=== PATIENT | female | born 1945 | race Caucasian/White ===

== ENCOUNTER 2017-03-01 10:52 | Inpatient (IN) | payer OTHER ==
[2017-01-30 15:11] VITALS: BMI 31.0
--- NOTE | 2017-01-30 15:45 | PAT Medication Instructions ---
Service Date Jan 30, 2017. Current Home Medication List Albuterol Hfa (Ventolin Hfa), 2 PUFFS INH Q6H PRN for PRN Alendronate/Cholecalciferol (Fosamax+D 70MG/2800 Iu), 1 TABLET PO WK Atorvastatin (Lipitor), 80 MG PO QPM Calcium Carbonate-Cholecalcife (Caltrate 600+D), 1 TAB PO 2-3XWEEK Carvedilol (Coreg), 12.5 MG PO BID Cholecalciferol (Vitamin D3), 5,000 UNITS PO 2-3XWEEK Fluticasone Propionate (Nasal) (Flonase Allergy Relief), 2 SPRAYS ALBERTO QPM PRN for RN Losartan Potassium (Cozaar), 50 MG PO QAM Omeprazole (Prilosec), 40 MG PO QAM Oxybutynin Chloride Er (Ditropan Xl), 10 MG PO QAM [Feosol], 1 TAB PO QAM Medication Instructions For Your Scheduled Surgery - Hold the following medications the morning of surgery: [Feosol], 1 TAB PO QAM Losartan Potassium (Cozaar), 50 MG PO QAM Calcium Carbonate-Cholecalcife (Caltrate 600+D), 1 TAB PO 2-3XWEEK Cholecalciferol (Vitamin D3), 5,000 UNITS PO 2-3XWEEK - Take the following medications the morning of surgery with a sip of water OTHERWISE NOTHING TO EAT OR DRINK AFTER MIDNIGHT: Omeprazole (Prilosec), 40 MG PO QAM Albuterol Hfa (Ventolin Hfa), 2 PUFFS INH Q6H PRN for PRN (use if needed; BRING TO HOSPITAL) Carvedilol (Coreg), 12.5 MG PO BID Oxybutynin Chloride Er (Ditropan Xl), 10 MG PO QAM - Take the following medications as scheduled the night before surgery: Atorvastatin (Lipitor), 80 MG PO QPM Albuterol Hfa (Ventolin Hfa), 2 PUFFS INH Q6H PRN for PRN Carvedilol (Coreg), 12.5 MG PO BID Fluticasone Propionate (Nasal) (Flonase Allergy Relief), 2 SPRAYS ALBERTO QPM PRN If you have any questions please call us at [phone] or [phone] or [phone]
--- NOTE | 2017-01-30 16:16 | DIAGNOSTIC IMAGING REPORT ---
CHEST 2 VIEWS ROUTINE CLINICAL HISTORY: PAT preoperative evaluation COMPARISON STUDY: No previous studies for comparison. FINDINGS: The bones soft tissues and hemidiaphragms are normal. The cardiomediastinal silhouette is normal. The lungs are clear. The pulmonary vasculature is normal. IMPRESSION: Negative chest. Electronically signed by: Link Feng M.D. 01/30/2017 4:14 PM Dictated Date/Time: 01/30/2017 4:14 PM
[2017-01-30 16:18] LABS: BASO % 0.7 %; BASO ABS # 0.06 K/uL (0-0.2); COMPLETE YES; EOS % 3.5 %; HEMATOCRIT 40.6 % (37-47); IG% 0.1 %; LYMPH % 36.5 %; LYMPH ABS # 3.12 K/uL (1.2-3.4); MEAN CELL VOLUME 89.6 fL (80-100); MEAN CORPUSCULAR HEMOGLOBIN 31.8 pg (25-34); MEAN CORPUSCULAR HGB CONC 35.5 g/dl (32-36); MEAN PLATELET VOLUME 11.7 fL (7.4-10.4); MONO % 8.9 %; NEUT % 50.3 %; PLATELET COUNT 247 K/uL (130-400); RED BLOOD COUNT 4.53 M/uL (4.2-5.4); WHITE BLOOD COUNT 8.55 K/uL (4.8-10.8)
[2017-01-30 16:31] LABS: INR 0.9 (0.9-1.1); PROTHROMBIN TIME (PATIENT) 9.9 SECONDS (9.0-12.0)
[2017-01-30 16:37] LABS: BUN/CREATININE RATIO 13.8 (10-20); CREATININE 0.85 mg/dl (0.60-1.20)
--- NOTE | 2017-02-23 21:31 | HISTORY & PHYSICAL EXAMINATION ---
DATE OF ADMISSION: 03/01/2017 CHIEF COMPLAINT: Bilateral knee pain, right side greater than left. HISTORY OF PRESENT ILLNESS: The patient is a 71-year-old female who presents for treatment of her knees. She has a very long history of bilateral knee pain and discomfort. She describes it has gotten worse over the past 2 years. We have been treating her with injections, which provided some temporary relief, but has become less successful over time, particularly in the right knee. The right knee hurts more than left. It is increased with weightbearing. The more she walks, the more she hurts. She would like to have her right knee fixed. PAST MEDICAL HISTORY: 1. Hypertension. 2. Elevated cholesterol. 3. Arthritis. 4. Raba-boxk-mco-day smoking history. PAST SURGICAL HISTORY: Include jaw surgery. ALLERGIES: None. CURRENT MEDICINES: 1. Albuterol 2 puffs every 4 hours as needed for cough. 2. Oxybutynin/Ditropan 10 mg once a day. 3. Prilosec 40 mg a day. 4. Losartan 50 mg a day. 5. Fosamax 70 mg once a week. 6. Coreg 12.5 mg twice a day. 7. Flonase 2 sprays in each nostril daily. 8. Lipitor 80 mg a day. 9. Iron sulfate once a day. 10. Vitamin D3. 11. Caltrate with D. SOCIAL HISTORY: A 71-year-old female. She is single. Does not drink. FAMILY HISTORY: No heart disease, blood clots, thyroid cancer. REVIEW OF SYSTEMS: Negative for diabetes, neurologic problems, vascular problems or bleeding disorders. No history of DVT or PE. PHYSICAL EXAMINATION: GENERAL: Reveals a pleasant elderly female. HEENT: Benign. NECK: Supple. No lymphadenopathy. LUNGS: Clear to auscultation. HEART: Has a regular rate and rhythm. ABDOMEN: Soft, nontender, nondistended. EXTREMITIES: Grossly neurovascularly intact except as follows: Examination of the right leg reveals patient walks with a bit of a waddling gait. Examination of the right knee reveals varus alignment. She is tender over the medial joint line. Small knee effusion. Range of motion is 5-125. No instability. X-RAYS: X-rays of the right knee revealed advanced DJD. She has got complete loss of her medial joint space. Osteophytes of mediofemoral condyle and medial tibial plateau. She has some mild lateral compartment disease. ASSESSMENT: A 71-year-old female with bilateral knee degenerative joint disease, right side more symptomatic than the left. She has failed conservative treatment and would like to have her right knee replaced. PLAN: We are going to take her to operating room and do right total knee replacement. The risks and benefits of this procedure were explained to patient including but not limited to DVT, PE, , infection, neurological injury, vascular injury, bleeding problem, pain, limited range of motion, stiffness, failure to relieve symptoms, incomplete relief of symptoms, need for further surgery in the future, fracture, leg length inequality, nerve palsy, etc. The patient understands and desires to proceed. Informed consent was obtained. She does live by herself and she would like to go to rehab or halfway facility to recover which I think will be essential. She does smoke in the history and we will have to see whether she needs a nicotine patch in the hospital. I will see her 2 weeks postop. NIDIA
[2017-03-01] VITALS (9 sets, daily range): BP systolic 154–192; BP diastolic 73–93; PULSE 54–68; TEMP 36.4–36.9; O2SAT 94–100; Ht 154.9 cm; Wt 73.7 kg
[~2017-03-01] VITALS: Ht 154.9 cm; Wt 73.7 kg
[~2017-03-01 10:52] MED LIST: ACETAMINOPHEN 500 MG TAB PO SCH; ATOR-26 PO; ATROPINE SULFATE 0.1 MG/ML 5ML SYR IV PRN; BUPIVACAINE 0.25% 30 ML VIAL ONE; BUPIVACAINE 0.5 % 5 MG/1 ML PF 10ML VIAL ONE; BUPIVACAINE LIPOSOME 266 MG, BUPIVACAINE/EPINEPHRINE INJ 50 ML, SODIUM CHLORIDE 0.9% PF... INFIL SCH; CALC-354 PO; CARV12.52 PO; CEFAZOLIN 2000 MG/60 ML D5W 60 ML IV SCH; CHOL1000 PO; EpHEDrine SULFATE INJ 50 MG/ML AMP IV PRN; FAMOTIDINE 20 MG TAB PO SCH; FENTANYL CITRATE INJ 50 MCG/1 ML 2 ML VIAL IV PRN; FEOSOL PO; FLUT0.15 NAE; FSMD/70 PO; GABAPENTIN 300 MG CAP PO SCH; HYDROmorphone INJ 1 MG/ML SYR IV PRN; LABETALOL HCL IV 5 MG/ML 20ML IV PRN; LACTATED RINGER'S 1000ML 1,000 ML IV SCH; LACTATED RINGER'S 1000ML 500 ML IV ONE; LACTATED RINGER'S 1000ML IV SCH; LOSA50TA6 PO; MEPERIDINE HCL 25 MG/ML CARP IV PRN; METOCLOPRAMIDE HCL 10 MG TAB PO SCH; ONDANSETRON INJ 2 MG/ML 2 ML VIAL IV PRN; OXYB10TA13 PO; PRLSR20 PO; SCOPOLAMINE 1.5 MG TDSY TD SCH; TRANEXAMIC ACID INJ 1,000 MG in SODIUM CHLORIDE 0.9% 100ML 100 ML IV SCH; VNTHFA/IN INH
--- NOTE | 2017-03-01 11:35 | History & Physical Bridge Note ---
H&P Re-Evaluation Bridge Note: I have examined the patient, reviewed the History & Physical and in the interval since the performance of the History & Physical I have noted the following changes of clinical significance: No changes noted
[2017-03-01] MEDS ORDERED: FENTANYL CITRATE INJ 50 MCG/1 ML 2 ML VIAL ONE (12:18)
[2017-03-01] MEDS ORDERED: PROPOFOL IV EMULSION 10 MG/ML 20 ML VIAL IV ONE (12:18)
[2017-03-01] MEDS ORDERED: MIDAZOLAM HCL 1 MG/ML 2ML VIAL ONE ×2 (12:18)
[2017-03-01] MEDS ORDERED: SODIUM CHLORIDE 0.9% PF 50 ML VIAL ONE (13:26)
[2017-03-01] MEDS ORDERED: BUPIVACAINE/EPINEPHRINE 0.25% 1:200,000 30 ML VIAL ONE (13:26)
[2017-03-01] MEDS ORDERED: BACITRACIN 50000 UNIT VIAL ONE (13:26)
[2017-03-01] MEDS ORDERED: BUPIVACAINE LIPOSOME 1/3% 266 MG/20 ML VIAL INFIL ONE (13:27)
--- NOTE | 2017-03-01 15:19 | [facility] Post Operative Brief Note ---
Immediate Operative Summary Operative Date March 01, 2017. Pre-Operative Diagnosis Degenerative Joint Disease, right knee Post-Operative Diagnosis Degenerative Joint Disease, right knee Procedure(s) Performed Right Total Knee Arthroplasty Surgeon Dr. Oliveira Fleet Administrative Assistant Surgeon(s) CHERYL Wall Estimated Blood Loss 50 cc Findings Right Knee DJD Fluids (cc crystalloids) 1200 cc Specimens A) Right knee-bone and tissue Drains None Anesthesia Spinal Complication(s) None Disposition Recovery Room / PACU
[2017-03-01] MEDS ORDERED: HydrALAZINE HCL 20 MG/ML VIAL ONE (15:21)
[2017-03-01] MEDS ORDERED: ZOLPIDEM TARTRATE 5 MG TAB PO PRN (15:30)
[2017-03-01] MEDS: ACETAMINOPHEN 500 MG TAB PO SCH ×2 (15:30→23:54)
[2017-03-01] MEDS ORDERED: DiphenhydrAMINE HCL 50 MG/ML VIAL IV PRN (15:30)
[2017-03-01] MEDS ORDERED: OXYCODONE HCL IR 5 MG TAB (IMMEDIATE RELEASE) PO PRN (15:30)
[2017-03-01] MEDS ORDERED: FLUTICASONE PROPIONATE NA SPR 16 GM BTL NAE PRN (15:30)
[2017-03-01] MEDS ORDERED: HYDROmorphone INJ 1 MG/ML SYR IV PRN (15:30)
[2017-03-01] MEDS ORDERED: MAGNESIUM HYDROXIDE SUSP 30 ML UDC PO PRN (15:30)
[2017-03-01] MEDS ORDERED: ALUMINUM/MAGNESIUM/SIMETH (MAALOX MAX) 30 ML UDC PO PRN (15:30)
[2017-03-01] MEDS ORDERED: CALCIUM CARBONATE CHOLECALCIFE PO SCH (15:30)
[2017-03-01] MEDS ORDERED: ONDANSETRON INJ 2 MG/ML 2 ML VIAL IV PRN (15:30)
[2017-03-01] MEDS ORDERED: BISACODYL 10 MG SUPP PR PRN (15:30)
[2017-03-01] MEDS ORDERED: ALBUTEROL HFA 8 GM INHALER INH PRN (15:30)
[2017-03-01] MEDS ORDERED: METOCLOPRAMIDE HCL INJ 5 MG/ML 2 ML VIAL IV PRN (15:30)
[2017-03-01] MEDS ORDERED: SILVER SULFADIAZINE 1% CR 50 GM JAR EXT PRN (15:30)
--- NOTE | 2017-03-01 16:10 | DIAGNOSTIC IMAGING REPORT ---
RIGHT KNEE 1 OR 2 VIEWS ROUTINE CLINICAL HISTORY: Postoperative evaluation. COMPARISON: None FINDINGS: Alignment of the total right knee arthroplasty is anatomic. There is no fracture or unexpected radiopaque foreign body. Skin chyna are present. IMPRESSION: Expected findings following total right knee arthroplasty. Electronically signed by: Ken Venegas M.D. 03/01/2017 4:09 PM Dictated Date/Time: 03/01/2017 4:09 PM
--- NOTE | 2017-03-01 16:38 | Anesthesiology Progress Note ---
Anesthesia Post Op Note Date & Time March 01, 2017 at 16:37 Vital Signs Pain Intensity: 0 Vital Signs Past 12 Hours Date Time Temp Pulse Resp B/P Pulse Ox O2 Delivery O2 Flow Rate FiO2 03/01/17 15:57 61 98 03/01/17 15:57 37 53 16 03/01/17 15:55 141/85 03/01/17 15:52 49 15 03/01/17 15:52 46 15 100 03/01/17 15:50 137/81 03/01/17 15:47 47 15 100 03/01/17 15:47 50 15 03/01/17 15:45 149/79 03/01/17 15:42 46 14 100 03/01/17 15:42 48 14 03/01/17 15:41 158/89 03/01/17 15:37 56 15 03/01/17 15:37 52 15 100 03/01/17 15:36 150/73 03/01/17 15:35 54 16 03/01/17 15:35 52 16 100 03/01/17 15:32 152/66 03/01/17 15:25 36.5 53 16 152/66 100 Nasal Cannula 3 03/01/17 11:42 36.5 55 16 170/80 Room Air Notes Mental Status: alert / awake / arousable, participated in evaluation Pt Amnestic to Procedure: Yes Nausea / Vomiting: adequately controlled Pain: adequately controlled Airway Patency, RR, SpO2: stable & adequate BP & HR: stable & adequate Hydration State: stable & adequate Neuraxial Anesthesia: was administered, sensory block is resolving Anesthetic Complications: no major complications apparent
[2017-03-01] MEDS: CHECK SCOPOLAMINE PATCH PLACEMENT SCH ×2 (17:02→23:52)
[2017-03-01] MEDS: D5W AND 1/2NSS + 20MEQ KCL 1,000 ML IV SCH (17:03)
[2017-03-01] MEDS: FERROUS GLUCONATE 324 MG TAB PO SCH (18:05)
[2017-03-01] MEDS: KETOROLAC TROMETHAMINE 30 MG/ML VIAL IV. SCH ×2 (18:06→23:55)
[2017-03-01] MEDS: TAPENTADOL ER 50 MG TABCR PO SCH (21:11)
[2017-03-01] MEDS: ATORVASTATIN 40 MG TAB PO SCH (21:11)
[2017-03-01] MEDS: ASPIRIN 325 MG ECTAB PO SCH (21:12)
[2017-03-01] MEDS: DOCUSATE SODIUM 100 MG CAP PO SCH (21:12)
[2017-03-01] MEDS ORDERED: TRANEXAMIC ACID INJ 1,000 MG in SODIUM CHLORIDE 0.9% 100ML 100 ML IV SCH (21:30)
[2017-03-01] MEDS: CARVEDILOL 12.5 MG TAB PO SCH (21:53)
[2017-03-01] MEDS: CEFAZOLIN IV 1,000 MG in DEXTROSE 5% 50ML 50 ML IV SCH (21:54)
--- NOTE | 2017-03-01 22:34 | OPERATIVE REPORT ---
DATE OF OPERATION: 03/01/2017 SURGEON: Dr. Earl Oliveira. VICE PRESIDENT OF ADVERTISING: CHERYL Russ. PREOPERATIVE DIAGNOSIS: Right knee degenerative joint disease. POSTOPERATIVE DIAGNOSIS: Same. PROCEDURE PERFORMED: Right cemented posterior stabilized total knee arthroplasty. COMPLICATIONS: None. ESTIMATED BLOOD LOSS: 50 mL FLUID REPLACEMENT: 1200 mL crystalloid fluid replacement. TOURNIQUET TIME: 56 minutes at 300 mmHg. ANESTHESIA: Spinal. DRAINS: None. SPECIMENS: Right knee sent for pathology. OPERATIVE INDICATIONS: The patient is a 71-year-old female who has had several-year history of bilateral knee pain and discomfort, describes it has just gotten worse over the past several years. She has been through extensive conservative treatment without adequate relief. X-rays revealed medial compartment DJD. The patient elected to proceed with operative treatment. OPERATIVE FINDINGS: Operative findings revealed advanced right knee medial compartment DJD. She had complete loss of her medial joint space with [id number] disease in the medial femoral condyle and medial tibial plateau. She also had some grade 4 changes of patella and the trochlea. The lateral compartment was pretty well preserved. She did have a knee effusion and varus deformity to her knee. She had posterior osteophytes. OPERATIVE IMPLANTS: Operative implants consisted of: 1. Biomet Vanguard size 62.5 right posterior stabilized femoral component. 2. Biomet size 63 tibial tray. 3. A 12 mm posterior stabilized polyethylene insert. 4. A 31 x 8 all poly patella. OPERATIVE PROCEDURE: The patient was taken to the operating room, identified and placed on the operating table in supine position. All contact areas were appropriately padded. IV antibiotics were provided by anesthesia team. A spinal anesthetic had been implemented in the holding area along with an adductor canal block. Ngo catheter was placed in sterile fashion. Right thigh tourniquet was then placed and right lower extremity was then prepped and draped in the usual sterile fashion. The right leg was elevated and exsanguinated with Esmarch and tourniquet was placed at 300 mmHg. An anterior approach to the right knee was then performed through a longitudinal incision centered over the patella. Sharp dissection was carried out through the subcutaneous tissues down to the level of the extensor mechanism. A medial parapatellar arthrotomy incision was made. Some subperiosteal dissection was carried out medially. The fat pad was resected from beneath the patellar tendon. The lateral patellofemoral ligament was released. The patella was everted and the knee was flexed. The osteophytes were taken off the distal femur. The ACL and PCL were then released from the distal femur and the tibia subluxated anteriorly. The external tibial alignment jig was then placed in the anterior face of the tibia and adjusted 14 mm medially. Proximal tibial cut was made to remove about 2-3 mm of bone from the most deficient aspect of the medial tibial plateau. Tibia was sized to a size 63. Attention was then drawn to the femur. The distal femur was entered with a sharp drill. The intramedullary canal was suctioned. A right 5-degree valgus cutting guide was placed. The distal femoral cutting block was pinned in place. Distal femoral cut was made to take an additional 3 mm of bone off the distal femur. The femur was then sized to a size 62.5. We did downsize this slightly. The AP cutting block was pinned parallel to the epicondylar axis which was 4 degrees of external rotation. The anterior cut, anterior chamfer, posterior cut, posterior chamfer cuts were made. Box cutting guide was placed. The knee was flexed. The remnants of the medial and lateral menisci were excised. The osteophytes were taken off the posterior aspect of the femur. Trial femoral component was placed. The tibial tray was pinned in maximum external rotation, and drill and stem punch were used to create defect in the proximal tibia for the tibial tray. The knee was then trialed and the 12 mm insert fit most appropriately. Attention was then drawn to the patella. The patella was cleaned of all soft tissues. The patella thickness measured 21 mm in thickness and was cut down to 14. It was sized to a size 31 patella. Lug holes were drilled for the 31 patella. The lateral osteophyte was removed. Patella button was placed. Knee was taken through range of motion and the patella tracked nicely with no thumbs test. Attention was then drawn toward placement of permanent components. All trial components were removed. A bone plug was placed in the distal femur to limit blood loss. A double batch of Palacos G cement was mixed. A right size 62.5 posterior stabilized femoral component, size 63 tibial tray, 12 mm posterior stabilized polyethylene insert, and a 31 x 8 all poly patella were then cemented in place. The knee was brought out into full extension until cement hardened. A final cement check was then performed. The pericapsular tissues were injected with a total of 100 mL of a combination of 20 mL of Exparel, 30 mL of normal saline, 50 mL of 0.25% Marcaine with epinephrine. The tourniquet was then let down for a final tourniquet time of 56 minutes. The patient did receive 1 gram of tranexamic acid. Hemostasis was assured with use of electrocautery. The wound was once again irrigated. The extensor mechanism was then closed with a combination of #1 PDS suture and #1 Vicryl suture in a [id number] fashion. Extensor mechanism was checked and found to be intact. Subcutaneous tissues were then closed with 2-0 Dexon suture in a buried interrupted fashion. Skin was closed with skin chyna. Leg was then cleaned and dried, and a sterile dressing of Xeroform, 4 x 4's, sterile cast padding, and Justus bandage was applied. The patient was then transferred to the recovery room in stable condition. The patient tolerated the procedure well with no complications. All needle and sponge counts were correct at the end of the operation. I attest to the content of the Intraoperative Record and any orders documented therein. Any exceptio ns are noted below.
[2017-03-02] VITALS (7 sets, daily range): BP systolic 109–155; BP diastolic 62–75; PULSE 49–67; TEMP 36.7–36.8; O2SAT 93–96
[2017-03-02] MEDS: D5W AND 1/2NSS + 20MEQ KCL 1,000 ML IV SCH ×2 (01:43→11:32)
[2017-03-02] MEDS: CEFAZOLIN IV 1,000 MG in DEXTROSE 5% 50ML 50 ML IV SCH (06:00)
[2017-03-02] MEDS: KETOROLAC TROMETHAMINE 15 MG/ML VIAL IV. SCH ×3 (06:00→17:51)
[2017-03-02 06:03] LABS: HEMATOCRIT 33.9 % (37-47); MEAN CELL VOLUME 91.9 fL (80-100); MEAN CORPUSCULAR HEMOGLOBIN 31.2 pg (25-34); MEAN CORPUSCULAR HGB CONC 33.9 g/dl (32-36); MEAN PLATELET VOLUME 11.3 fL (7.4-10.4); PLATELET COUNT 212 K/uL (130-400); RED BLOOD COUNT 3.69 M/uL (4.2-5.4); WHITE BLOOD COUNT 9.25 K/uL (4.8-10.8)
[2017-03-02 06:33] LABS: BUN/CREATININE RATIO 13.5 (10-20); CALCIUM 8.3 mg/dl (8.5-10.1); CREATININE 0.95 mg/dl (0.60-1.20); POTASSIUM 4.3 mmol/L (3.5-5.1)
[2017-03-02] MEDS: CHECK SCOPOLAMINE PATCH PLACEMENT SCH ×2 (07:34→16:08)
[2017-03-02] MEDS: FERROUS GLUCONATE 324 MG TAB PO SCH ×3 (07:35→17:51)
[2017-03-02] MEDS: ACETAMINOPHEN 500 MG TAB PO SCH ×2 (07:35→16:09)
[2017-03-02] MEDS: ASPIRIN 325 MG ECTAB PO SCH ×2 (07:40→21:00)
[2017-03-02] MEDS: LOSARTAN POTASSIUM 50 MG TAB PO SCH (07:40)
[2017-03-02] MEDS: OXYBUTYNIN CHLORIDE 5 MG TABCR PO SCH (07:40)
[2017-03-02] MEDS: MULTIVITAMIN TAB PO SCH (07:40)
[2017-03-02] MEDS: CARVEDILOL 12.5 MG TAB PO SCH ×2 (07:40→20:57)
[2017-03-02] MEDS: DOCUSATE SODIUM 100 MG CAP PO SCH ×2 (07:41→20:59)
[2017-03-02] MEDS: PANTOprazole SOD 40 MG TAB PO SCH (07:41)
[2017-03-02] MEDS: CHOLECALCIFEROL 400 INTER.UNIT TAB PO SCH (07:41)
[2017-03-02] MEDS: NICOTINE 14 MG/24 HR TDSY TD SCH ×2 (07:41→20:55)
[2017-03-02] MEDS: TAPENTADOL ER 50 MG TABCR PO SCH ×2 (07:45→20:59)
[2017-03-02] MEDS ORDERED: NURSING VERBAL MED ORDER ONE (08:15)
--- NOTE | 2017-03-02 08:21 | PROGRESS NOTE ---
DATE: 03/02/2017 SUBJECTIVE: A 71-year-old female postop day 1 from right knee replacement. She is doing pretty well. Some pain, but manageable. No chest pain or shortness of breath. Not feeling dizzy or lightheaded. OBJECTIVE: VITAL SIGNS: Temperature 36.7. Vital signs stable. PHYSICAL EXAMINATION: GENERAL: Reveals a pleasant, middle-aged female. She is sitting up in bed and looks pretty comfortable. LUNGS: Clear to auscultation. HEART: Regular rate and rhythm. ABDOMEN: Soft, nontender, and nondistended. EXTREMITIES: Grossly neurovascularly intact except as follows: Examination of the right leg reveals the dressing to be clean, dry and intact. She can dorsiflex and plantarflex her foot appropriately. She is neurologically intact. LABORATORY DATA: Hemoglobin 11.5. Hematocrit 33.9. Electrolytes are stable. ASSESSMENT: A 71-year-old female postop day 1 from right knee replacement, doing pretty well. Pain is controlled. She is neurologically intact. PLAN: 1. DVT prophylaxis including thigh-high TEDs, SCDs, and aspirin twice a day. 2. PT/OT. Weightbearing as tolerated. Right total knee protocol. 3. Pain control, doing well with current pain regimen. 4. Disposition: She is hoping to be discharged either to rehab or long-term facility as she lives by herself and does not have a lot of help at home.
[2017-03-02] MEDS ORDERED: NON-FORMULARY MEDICATION (Omeprazole (Prilosec) 40 MG) PO SCH (09:00)
[2017-03-02] MEDS: ATORVASTATIN 40 MG TAB PO SCH (21:00)
[2017-03-03] MEDS: CHECK SCOPOLAMINE PATCH PLACEMENT SCH
[2017-03-03] MEDS: KETOROLAC TROMETHAMINE 15 MG/ML VIAL IV. SCH ×3 (05:41→11:54)
[2017-03-03 06:35] VITALS: BP 144/66; PULSE 69; TEMP 36.5; O2SAT 93
[2017-03-03] MEDS: PANTOprazole SOD 40 MG TAB PO SCH (07:51)
[2017-03-03] MEDS: ASPIRIN 325 MG ECTAB PO SCH (07:51)
[2017-03-03] MEDS: NICOTINE 14 MG/24 HR TDSY TD SCH (07:51)
[2017-03-03] MEDS: OXYBUTYNIN CHLORIDE 5 MG TABCR PO SCH (07:52)
[2017-03-03] MEDS: CARVEDILOL 12.5 MG TAB PO SCH (07:52)
[2017-03-03] MEDS: DOCUSATE SODIUM 100 MG CAP PO SCH (07:52)
[2017-03-03] MEDS: CHOLECALCIFEROL 400 INTER.UNIT TAB PO SCH (07:52)
[2017-03-03] MEDS: MULTIVITAMIN TAB PO SCH (07:52)
[2017-03-03] MEDS: LOSARTAN POTASSIUM 50 MG TAB PO SCH (07:52)
[2017-03-03] MEDS: FERROUS GLUCONATE 324 MG TAB PO SCH ×2 (07:53→12:20)
[2017-03-03] MEDS: ACETAMINOPHEN 500 MG TAB PO SCH ×2 (07:53)
[2017-03-03] MEDS ORDERED: OXYC-57 PO (07:54)
[2017-03-03] MEDS ORDERED: ASPEC325 PO (07:54)
[2017-03-03] MEDS ORDERED: MORP15TA19 PO (07:54)
--- NOTE | 2017-03-03 07:56 | Discharge Instructions ---
Discharge Instructions Date of Service March 03, 2017. Admission Reason for Admission: Right Knee Degenerative Joint Disease Discharge Discharge Diagnosis / Problem: Right Knee Replacement Discharge Goals Goal(s): Decrease discomfort, Improve function, Increase independence, Improve disease control, Therapeutic intervention Activity Recommendations Activity Limitations: per Instructions/Follow-up section Weightbearing Status: Right weightbearing . Instructions / Follow-Up Instructions / Follow-Up ACTIVITY RECOMMENDATIONS: Physical Therapy: * You will go to physical therapy three times each week for four to six weeks after your surgery in order to regain your knee range of motion and to retrain your knee to work properly. * It is just as important to make sure you are getting your knee perfectly straight as it is to regain your knee bend. * Taking a pain pill an hour before therapy can help you have a more productive and comfortable therapy session. Home Exercise: * You were shown a series of exercises (heel props, heel slides, etc.) in the hospital. Do these exercises three to four times each day including the exercises you were shown in physical therapy. Walking: * Get up and walk several times each day. For the first four weeks, try not to stand or walk for more than one hour at a time. If you do stand or walk for more than one hour, you will not hurt anything, but your knee and leg will likely swell. * As you feel comfortable, you may change from the walker or crutches to a cane and then to independent walking. MEDICATIONS: New Medicine: * You will likely be taking one or more of these medications: 1. MS Contin - A long-acting pain medication. Take 1 tablet twice a day for the first ten days to decrease your baseline level of pain. 2. Percocet - A quick and shorter-acting pain medication. Take one to two tablets every four to six hours to lessen your pain. 3. Aspirin - Thins your blood to lessen the chance of forming a blood clot. * The most common side effects of pain medicine and iron are nausea and constipation. If nausea or constipation is too much of a problem or if you have any questions about your new medicines or doses, call [facility] at . We will try to help you manage these issues. VERY IMPORTANT TO READ AND REVIEW" Pain: * The immediate post-operative period after knee replacement surgery is often quite painful. * You are given a prescription for pain medicine. You should take it, as directed, when you need it, especially before physical therapy and before going to bed. Pain that interferes with sleep is very common and can last several months. * You will likely need pain medicine for the first four to six weeks. It will not stop all of the pain. The pain will lessen and as you feel better, you may change to milder pain medicine such as Tylenol. * The most common side effects of pain medicine are nausea and constipation, so don't take more than you need. SPECIAL CARE INSTRUCTIONS: TEDs/Elastic Stockings: * The white elastic stockings help limit swelling and prevent blood clots from forming in your legs. The more you wear them, the more they work. * Wear them for six weeks after knee replacement surgery and four weeks after partial knee replacement. Prevention of Infection: * Take antibiotics one hour before any dental cleaning, dental work, urological procedure, gastrointestinal procedure or any invasive surgery in order to prevent your new joint from getting infected. * You may get the antibiotics from the doctor performing the procedure or you may call our office at before and we will call in a prescription to the pharmacy of your choice. Things to Watch For: * Drainage from the incision site that occurs more than one week after your surgery. * Severely increased knee/leg pain or swelling. * Increased redness at the incision site. * Fever above 102 degrees Fahrenheit. * Unusual chest pain or shortness of breath. * Unusual pain or burning with urination. Call [facility] at with any of the above problems or if you have any questions about your medicines or recovery. FOLLOW UP VISIT: Make an appointment to see your doctor for approximately two weeks after surgery for a progress check and staple removal by calling the office at . Current Hospital Diet Patient's current hospital diet: Regular Diet Discharge Diet Recommended Diet: Regular Diet Procedures Procedures Performed: Right Total Knee Arthroplasty Pending Studies Studies pending at discharge: no Medical Emergencies . Who to Call and When: Medical Emergencies: If at any time you feel your situation is an emergency, please call [phone] immediately. . Non-Emergent Contact Non-Emergency issues call your: Surgeon . "Provider Documentation" section prepared by Earl Oliveira. . VTE Core Measure Inpt VTE Proph given/why not?: Other Anticoagulation, T.E.D. Stockings, SCD's
[2017-03-03] MEDS: TAPENTADOL ER 50 MG TABCR PO SCH (08:01)
--- NOTE | 2017-03-03 09:18 | PROGRESS NOTE ---
DATE: 03/03/2017 SUBJECTIVE: A 71-year-old female postop day 2 from right knee replacement. She is doing pretty well. Pain seems to be controlled. Therapy went in reasonably well. No chest pain or shortness of breath. Not feeling dizzy or lightheaded. OBJECTIVE: VITAL SIGNS: Temperature 36.5. Vital signs stable. PHYSICAL EXAMINATION: GENERAL: Reveals a healthy, pleasant middle-aged female. She is sitting in a bedside and looks pretty comfortable. LUNGS: Clear to auscultation. HEART: Regular rate and rhythm. ABDOMEN: Soft, nontender, nondistended. EXTREMITIES: Grossly neurovascularly intact except as follows: Examination of the right leg reveals the dressing to be clean, dry and intact. She can dorsiflex and plantarflex her foot appropriately. She is neurologically intact. ASSESSMENT: A 71-year-old female postop day 2 from right knee replacement, doing pretty well. Pain is pretty well controlled. She is now hoping to go home with some home health. PLAN: 1. DVT prophylaxis including thigh-high TEDs, SCDs, and aspirin twice a day. 2. PT/OT. Weightbearing as tolerated. Right total knee protocol. 3. Pain control, doing pretty well with current pain regimen. 4. Disposition: Plan to discharge to home with some home health. Her sister is currently available and she is going to help her for the first week or two.
[2017-03-03 10:22] VITALS: BP 144/66; PULSE 69; TEMP 36.5; O2SAT 93
[2017-03-04] MEDS ORDERED: CALCIUM 600MG + VIT D 400 IU TAB PO SCH (09:00)
--- NOTE | 2017-03-06 16:31 | DISCHARGE SUMMARY ---
ADMITTING PHYSICIAN AND SURGEON: Dr. Oliviera. ADMITTING DIAGNOSIS: Right knee degenerative joint disease. SURGERY PERFORMED: Right total knee arthroplasty. SECONDARY DIAGNOSES: Include hypertension, elevated cholesterol, arthritis and smoking history. CONSULTS: None obtained. HISTORY AND PHYSICAL EXAMINATION: Well documented in the patient's chart. HOSPITAL COURSE: The patient was admitted on 03/01/2017 and underwent total knee arthroplasty, tolerated the procedure well. There were no complications. She was transferred to the PACU postoperatively and later to the orthopedic floor for further care. She was given Ancef for antibiotic prophylaxis. and CHRISSIE stockings, SCDs and aspirin for DVT prophylaxis. Hemoglobin, hematocrit and vital signs were monitored during her hospital stay and remained stable. She developed some mild postoperative anemia, did not require any blood transfusions. There were no complications. By postoperative day #2, she was tolerating a general diet, pain was controlled with oral pain medicine. She was participating in physical therapy and had no signs or symptoms of deep vein thrombosis. On postop day #2, she was discharged home and set up with home health services, given printed discharge instructions including new prescriptions for aspirin 325 mg b.i.d., MS Contin and Percocet. Continue her home medicines. Continue physical therapy, weightbearing as tolerated, CHRISSIE stockings. Follow up in 10-12 days or sooner if there are any problems or concerns.
== END 2017-03-03 12:30 | disposition home health service (06) | DRG 470 ==
LOC: ENRESERVDT → ENRESERVTM → C.ACU 10:52 → C.3E 12:08
PROVIDERS: ADMIT Orthopaedic Surgery Sports Medicine; ATTEND Orthopaedic Surgery Sports Medicine
PROC: 0SRC0J9 Replacement of Right Knee Joint with Synthetic Substitute, Cemented, Open Approach (ICD-10-PCS; principal; 2017-03-01 13:15)
DX: M17.0 Bilateral primary osteoarthritis of knee (principal); I10 Essential (primary) hypertension; E78.00 Pure hypercholesterolemia, unspecified; F17.210 Nicotine dependence, cigarettes, uncomplicated; K21.9 Gastro-esophageal reflux disease without esophagitis; D64.9 Anemia, unspecified; E11.9 Type 2 diabetes mellitus without complications; E66.9 Obesity, unspecified; M25.461 Effusion, right knee; M21.161 Varus deformity, not elsewhere classified, right knee; K27.9 Peptic ulcer, site unspecified, unspecified as acute or chronic, without hemorrhage or perforation; Z68.30 Body mass index [BMI] 30.0-30.9, adult; Z79.82 Long term (current) use of aspirin; Z79.899 Other long term (current) drug therapy; Z79.51 Long term (current) use of inhaled steroids

== ENCOUNTER 2019-03-10 10:12 | Inpatient (IN) ==
--- NOTE | 2019-02-09 13:36 | PAT Medication Instructions ---
Medication Instructions Date of Service February 09, 2019 Home Medications ALBUTEROL HFA (VENTOLIN HFA) 2 puff INHALATION Q6H PRN ATORVASTATIN (LIPITOR)N80 mg PO QPM Alendronate/Cholecalciferol 1 tab PO WK CALCIUM CARBONATE-CHOLECALCIFE 1 tab PO 2-3XWEEK CARVEDILOL (COREG) 12.5 mg PO BID CHOLECALCIFEROL (VITAMIN D3) 5,000 unit PO 2-3XWEEK FEOSOL 1 tab PO QAM Fluticasone Propionate (Nasal) 2 spry ALBERTO QPM PRN LOSARTAN POTASSIUM (COZAAR) 50 mg PO QAM OMEPRAZOLE (PRILOSEC) 40 mg PO QAM OXYBUTYNIN CHLORIDE ER (DITROPAN 10 mg PO QAM aspirin [Aspir-81] 81 mg PO QAM Continue as directed Alendronate/Cholecalciferol 1 tab PO WK DO NOT take the morning of surgery CALCIUM CARBONATE-CHOLECALCIFE 1 tab PO 2-3XWEEK CHOLECALCIFEROL (VITAMIN D3) 5,000 unit PO 2-3XWEEK FEOSOL 1 tab PO QAM LOSARTAN POTASSIUM (COZAAR) 50 mg PO QAM Take morning of surgery With a small sip of water, OTHERWISE NOTHING TO EAT OR DRINK AFTER MIDNIGHT: ALBUTEROL HFA (VENTOLIN HFA) 2 puff INHALATION Q6H PRN (use if needed; please bring with you to hospital day of surgery if possible) CARVEDILOL (COREG) 12.5 mg PO BID OMEPRAZOLE (PRILOSEC) 40 mg PO QAM OXYBUTYNIN CHLORIDE ER (DITROPAN 10 mg PO QAM aspirin [Aspir-81] 81 mg PO QAM Take evening before surgery ALBUTEROL HFA (VENTOLIN HFA) 2 puff INHALATION Q6H PRN (if needed) ATORVASTATIN (LIPITOR)N80 mg PO QPM CARVEDILOL (COREG) 12.5 mg PO BID Fluticasone Propionate (Nasal) 2 spry ALBERTO QPM PRN (if needed) Other Notes If you have any questions please call us at [phone] or [phone] or [phone] or [phone]
--- NOTE | 2019-02-10 13:03 | Anesthesiology Consultation ---
Date of Service February 10, 2019 Assessment & Plan (1) Encounter for pre-operative examination: Chart Review Chart Review: Acceptable Risk for Surgery and Patient seen in Pre Admission Testing Teaching & Discussion Pre-Anesthesia Teaching/Discussion Notes: Instructed NPO after midnight before surgery,except medications with 15 cc of water. Medication instructions provided according to the PAT guidelines. History Surgery Operation Date: 03/10/19 10:40 Proposed Procedures p Left Total Knee Arthroplasty - Earl Oliveira MD Height/Weight Height: 5 ft 1 in Weight: 69.4 kg Allergies Allergy/AdvReac Type Severity Reaction Status Date / Time lisinopril AdvReac "FELT WEAK" Verified 02/10/19 13:16 Medications Home Medications Medication Instructions Recorded Confirmed Last Taken ALBUTEROL HFA (VENTOLIN HFA) 2 puff INHALATION Q6H PRN #1 01/30/17 Unknown inhaler ATORVASTATIN (LIPITOR) 80 mg PO QPM #0 tab 01/30/17 Unknown Alendronate/Cholecalciferol 1 tab PO WK #0 tab 01/30/17 Unknown (Fosamax+D 70MG/2800 Iu) CALCIUM CARBONATE-CHOLECALCIFE 1 tab PO 2-3XWEEK #0 01/30/17 Unknown (CALTRATE 600+D) CARVEDILOL (COREG) 12.5 mg PO BID #0 tab 01/30/17 Unknown CHOLECALCIFEROL (VITAMIN D3) 5,000 unit PO 2-3XWEEK 90 Days #0 01/30/17 Unknown tab FEOSOL 1 tab PO QAM #0 01/30/17 Unknown Fluticasone Propionate (Nasal) 2 spry ALBERTO QPM PRN #0 01/30/17 Unknown (Flonase Allergy Relief) LOSARTAN POTASSIUM (COZAAR) 50 mg PO QAM #0 tab 01/30/17 Unknown OMEPRAZOLE (PRILOSEC) 40 mg PO QAM #0 cap 01/30/17 Unknown OXYBUTYNIN CHLORIDE ER (DITROPAN 10 mg PO QAM #0 tab 01/30/17 Unknown XL) aspirin [Aspir-81] 81 mg PO QAM 02/04/19 02/04/19 Unknown Past Medical History Medical History GERD (gastroesophageal reflux disease) CONTROLLED History of blood transfusion 1962 WITH CHILDBIRTH History of bronchitis REMOTE; NOW RARE INHALER PRN Hyperlipidemia Hypertension Prediabetes DIET CONTROLLED Past Surgical History Surgical History History of bilateral tubal ligation History of colonoscopy History of mandibular surgery JAW FRACTURE REPAIR (25+ YEARS AGO)- NO ROM LIMITATIONS History of total knee replacement RIGHT TKA Past Anesthesia History No Hx of Anesthesia Complications and No Family Hx of Anesthesia Complications History of PONV No Motion Sickness Screening History of Motion Sickness: No Social History Smoking Status: Current every day smoker tobacco type: cigarettes Smoking cigarettes per day: 1/2 PPD X 10+ YEARS Do You Dip or Chew Tobacco: No Hx Alcohol Use: No Hx Substance Use: No substance use type: does not use Exercise / Class Metabolic Activity III < 4 Walking/Shop/Light housework Review of Systems Patient denies chest pain, shortness of breath, cough, wheezing, palpitations. Physical Exam Vital Signs VITALS BP left: 170/72 (manual recheck right: 128/78) P 50 TEMP 97.8 SP02 97%RA RESP 18 PHYSICAL Full neck and c-spine range of motion. Full TMJ range of motion. TMD 3 finger breaths Mallampati Score 2 Dentition: intact Lungs: clear throughout to auscultation Cardiac: regular rate and rhythm, no murmurs noted Spine: normal Carotid arteries: negative bruit Extremities: no edema Testing Electrocardiogram Date: 05/29/18 NSR with sinus arrhythmia at 62bpm. Inferior/anterior infarct (cited on/before 03/12/15 per cardio-- ECHO done 06/2018) Echocardiogram Date: 07/02/18 LVEF 73%. No RWMA. Mild LAE. Top normal pulmonary pressure. Mild TR. Trace to mild MR. Mild AV sclerosis. Laboratory Results 02/10/19 13:27 02/10/19 13:27 Blood Type A Positive 02/10/19 13:27 Antibody Screen NEGATIVE 02/10/19 13:27 PT 10.3 Seconds (9.0-12.0) 02/10/19 13:27 INR 1.0 (0.9-1.1) 02/10/19 13:27 APTT 26.5 Seconds (21.0-31.0) 02/10/19 13:27
--- NOTE | 2019-02-10 13:54 | XRay Report ---
XR chest Pre-admission PA/Lat HISTORY: 73 years-old Female pat preoperative exam. No acute chest complaints COMPARISON: Chest radiograph 01/30/2017 TECHNIQUE: PA and lateral views of the chest FINDINGS: Cardiomediastinal and hilar silhouettes are within normal limits. Calcification the thoracic aortic a rch. No pneumothorax, pleural effusion, focal airspace consolidation or overt pulmonary edema. Degene rative changes of the shoulders and spine. IMPRESSION: No acute process. The above report was generated using voice recognition software. It may contain grammatical, syntax o r spelling errors. Electronically signed by: Salvatore Uriarte M.D. 02/10/2019 1:53 PM
[2019-02-10 14:23] LABS: Basophils # (auto) 0.05 K/uL (0-0.2); Basophils % (auto) 0.7 %; Eosinophils # (auto) 0.29 K/uL (0-0.5); Eosinophils % (auto) 3.9 %; Hematocrit (blood only) 39.3 % (37-47); Hemoglobin 13.8 g/dL (12.0-16.0); Lymphocytes # (auto) 2.72 K/uL (1.2-3.4); Mean Corpuscular Hgb Conc 35.1 g/dL (32-36); Mean Corpuscular Volume 90.8 fL (80-100); Monocytes # (auto) 0.56 K/uL (0.11-0.59); Monocytes % (auto) 7.6 %; Neutrophils # (auto) 3.74 K/uL (1.4-6.5); Neutrophils % (auto) 50.8 %; Platelet Count 248 K/uL (130-400); RDW Coefficient of Variation 13.2 % (11.5-14.5); RDW Standard Deviation 43.8 fL (36.4-46.3); Red Blood Count 4.33 M/uL (4.2-5.4); White Blood Count 7.36 K/uL (4.8-10.8)
[2019-02-10 14:32] LABS: BUN Creatinine Ratio 17.5 (10-20); Blood Urea Nitrogen 16 mg/dl (7-18); Calcium 8.8 mg/dl (8.5-10.1); Carbon Dioxide 25 mmol/L (21-32); Chloride 104 mmol/L (98-107); Creatinine Clr Calc Pharmacy 48.7 ml/min; Est GFR (African American) 71.2; Est GFR (Non-African American) 61.4; Glucose 98 mg/dl (70-99); Potassium 3.9 mmol/L (3.5-5.1); Sodium 135 mmol/L (136-145)
[2019-02-10 14:34] LABS: Partial Thromboplastin Time 26.5 Seconds (21.0-31.0); Prothrombin Time 10.3 Seconds (9.0-12.0)
[2019-02-10 14:35] LABS: C Reactive Protein < 0.29 mg/dl (0-0.29)
--- NOTE | 2019-03-06 14:32 | History and Physical Report ---
DATE OF ADMISSION: 03/10/2019 CHIEF COMPLAINT: Persistent left knee pain and discomfort. HISTORY OF PRESENT ILLNESS: The patient is a pleasant 73-year-old female status post a right knee replacement done in February of 2017, who presents for surgical treatment of her left knee. She had a fairly long history of left knee pain and discomfort, describes it just gotten worse over time. We have put shots in her knee intermittently. This has become less successful over time. She describes pain mostly on the medial side of the knee but some global pain. The more she walks, the more it hurts. It hurts her pretty much all day long. It keeps her up at night. The more she walks, the more it hurts. She would like to proceed with left knee replacement. PAST MEDICAL HISTORY: 1. Hypertension. 2. Elevated cholesterol. 3. Arthritis. 4. Peptic ulcer disease. PAST SURGICAL HISTORY: Include 1. Jaw surgery. 2. Right knee replacement done on 03/01/2017. ALLERGIES: None. CURRENT MEDICINES: Include 1. Losartan 50 mg once a day. 2. Flonase 2 sprays daily in each nostril. 3. Lipitor 80 mg. 4. Claritin 10 mg a day. 5. Ditropan XL 10 mg a day. 6. Prilosec 40 mg a day. 7. Iron sulfate 325 once a day. 8. Vitamin D3. 9. Albuterol inhaler every 4 hours for cough. 10. Fosamax once a week. 11. Caltrate with D 600 mg a day. 12. Trazodone 50 mg a day. SOCIAL HISTORY: A 73-year-old female. Lives in [place]. She smokes half pack of cigarettes per day. Does not drink. FAMILY HISTORY: Significant for heart disease, thyroid cancer, blood clots. REVIEW OF SYSTEMS: Significant for smoking history. She did quit a while back but says started back. No history of DVT or PE. No chest pain or shortness of breath. No bleeding problems. PHYSICAL EXAMINATION: GENERAL: Reveals a pleasant elderly female who looks to be in pretty good health. HEENT: Benign. NECK: Supple. No lymphadenopathy. LUNGS: Clear to auscultation. HEART: Regular rate and rhythm. ABDOMEN: Soft, nontender, nondistended. EXTREMITIES: Grossly neurovascularly intact except as follows. Examination of the knee reveals patient walks with slight bit of a limp. She has varus alignment to her knee. She is tender over the medial joint line. Range of motion is 5 degrees short of full extension, 120 degrees of flexion. Small knee effusion. No instability. She is neurovascularly intact. No pain with hip motion. X-RAYS: X-rays of the left knee reviewed. She has advanced left knee DJD. She has got complete loss of medial joint space. She is a little fragmentation of her medial tibial plateau. She has subchondral sclerosis. ASSESSMENT: A 73-year-old female status post right knee replacement with advanced left knee degenerative joint disease. She is happy with the right knee and would like to have her left knee replaced. PLAN: We will take her to the operating room and do a left total knee replacement. The risks and benefits of this procedure were explained to the patient including but not limited to DVT, PE, , infection, neurological injury, vascular injury, bleeding problem, pain, limited range of motion, stiffness, failure to relieve symptoms, incomplete relief of symptoms, need for further surgery in the future, fracture, leg length inequality, nerve palsy, persistent pain, incomplete relief of symptoms, etc. The patient understands and desires to proceed. Informed consent was obtained. Last time she was discharged to home and did pretty well with that. She had home health for 2 weeks and will plan on using [facility].
[~2019-03-10 10:12] MED LIST changes: -ACETAMINOPHEN 500 MG TAB PO SCH; -ATOR-26 PO; -ATROPINE SULFATE 0.1 MG/ML 5ML SYR IV PRN; -BUPIVACAINE 0.25% 30 ML VIAL ONE; -BUPIVACAINE LIPOSOME 266 MG, BUPIVACAINE/EPINEPHRINE INJ 50 ML, SODIUM CHLORIDE 0.9% PF... INFIL SCH; -CALC-354 PO; -CARV12.52 PO; -CEFAZOLIN 2000 MG/60 ML D5W 60 ML IV SCH; +CEFAZOLIN 2000MG 2,000 MG/15 ML SYR IV SCH; -CHOL1000 PO; -EpHEDrine SULFATE INJ 50 MG/ML AMP IV PRN; -FAMOTIDINE 20 MG TAB PO SCH; -FENTANYL CITRATE INJ 50 MCG/1 ML 2 ML VIAL IV PRN; -FEOSOL PO; -FLUT0.15 NAE; -FSMD/70 PO; -GABAPENTIN 300 MG CAP PO SCH; -HYDROmorphone INJ 1 MG/ML SYR IV PRN; -LABETALOL HCL IV 5 MG/ML 20ML IV PRN; -LACTATED RINGER'S 1000ML 1,000 ML IV SCH; -LACTATED RINGER'S 1000ML 500 ML IV ONE; -LACTATED RINGER'S 1000ML IV SCH; -LOSA50TA6 PO; +LR 500ML BOLUS, THEN 15ML/HR IV SCH; +LR 60ML/HR IV SCH; -MEPERIDINE HCL 25 MG/ML CARP IV PRN; -METOCLOPRAMIDE HCL 10 MG TAB PO SCH; -ONDANSETRON INJ 2 MG/ML 2 ML VIAL IV PRN; -OXYB10TA13 PO; -PRLSR20 PO; +ROPIVACAINE 0.5% 5 MG/ML 30 ML VIAL ONE; -SCOPOLAMINE 1.5 MG TDSY TD SCH; -TRANEXAMIC ACID INJ 1,000 MG in SODIUM CHLORIDE 0.9% 100ML 100 ML IV SCH; -VNTHFA/IN INH
--- OUTSIDE RECORDS SUMMARY | 2019-03-10 10:18 | External Medical Summary | Continuity of Care Document ---
:1945 Author Name Humble Chavez, Provider Address Unavailable Unavailable , Care Team Providers Name Role Phone Unavailable Unavailable Unavailable Yfn [email or web address] YFN HEIN M.D. Unavailable Unavailable Unavailable Unavailable Unavailable Problems Anxiety (300.00) (F41.9) Benign essential hypertension (401.1) (I10) Eustachian tube dysfunction (381.81) (H69.80) Allergic rhinitis (477.9) (J30.9) Insomnia (780.52) (G47.00) Dysuria (788.1) (R30.0) Impaired fasting glucose (790.21) (R73.01) Hypercholesterolemia (272.0) (E78.00) Hyponatremia (276.1) (E87.1) Stress incontinence in female (625.6) (N39.3) Visit for screening mammogram (V76.12) (Z12.31) Allergies and Adverse Reactions amLODIPine Besylate TABS (Allergy) hydroCHLOROthiazide TABS (Allergy) Medications Pravastatin Sodium 80 MG Oral Tablet; TAKE 1 TABLET DAILY. Kathy Marie Quantity: 90 Refills: 1 Clemastine Fumarate 2.68 MG Oral Tablet; take 1 tablet by mouth twice a day Kathy Hein Start: 24-Nov-2013 Quantity: 30 Refills: 5 Fluticasone Propionate 50 MCG/ACT Nasal Suspension; 2 sprays 2 sprays each nostril twice a day for 2 days then just at at bedtime thereafter Kathy Hein Start: 24-Nov-2013 Quantity: 1 16 GM Bottle Refills: 5 raNITIdine HCl - 150 MG Oral Tablet; TAKE 1 TABLET REINA RY 12 HOURS DAILY. Kathy Hein Start: 24-Nov-2013 Quantity: 60 Refills: 5 traMADol HCl - 50 MG Oral Tablet; 1 tablet q 4 hrs as needed Kathy Start: 14-Apr-2014 Refills: 0 PARoxetine HCl - 10 MG Oral Tablet; TAKE 1 TABLET DAILY. Kathy Figueroa Start: 19-Apr-2014 Quantity: 30 Refills: 2 Metoprolol Succinate ER 25 MG Oral Table t Extended Release 24 Hour; TAKE ONE (1) TABLET BY MOUTH ONCE DAILY Kathy Hein Start: 19-Apr-2014 Quantity: 30 Refills: 2 hydrOXYzine HCl - 25 MG Oral Tablet; 1 po q 8 hrs prn anxiety Kathy Hein Start: 19-Apr-2014 Quantity: 60 Refills: 1 Lisinopril 30 MG Oral Tablet; TAKE 1 TABLET DAILY. Erasmo Hein Start: 14-Apr-2014 Quantity: 30 Refills: 2 Oxybutynin Chloride ER 10 MG Oral Tablet Extended Release 24 Hour; Take 1 tablet daily Kathy Hein Quantity: 90 Refills: 1 traZODone HCl - 50 MG Oral Tablet; TAKE 1 TABLET AT BE DTIME NEEDED. Kathy Hein Quantity: 90 Refills: 1 hydroCHLOROthiazide 12.5 MG Oral Tablet; TAKE 1 TABLET DAILY. Kathy Hein Start: 27-Apr-2014 Quantity: 30 Refills: 2 Procedures History of Closed Treatment Of Mandibular Fracture Status: Completed Immunizations Immunizations not documented Family History Mother Family history of Alzheimer Disease Status: Active Father Family history of Acute Myocardial Infarction (V17.3) Status : Active Family history of Stroke Syndrome (V17.1) Status: Active Family history of Hypertension (V17.49) Status: Active Social History - Smoking Status Smoker. current status unknown Plan of Treatment Planned Observations Planned Goals not documented Results No Known Results Results not documented
--- NOTE | 2019-03-10 11:17 | History & Physical Bridge Note ---
Date of Service March 10, 2019 History & Physical Bridge Note I have examined the patient, reviewed the History & Physical and in the interval since the performance of the History & Physical I have noted the following changes of clinical significance: no changes noted
[2019-03-10] MEDS ORDERED: MIDAZOLAM HCL 1 MG/ML 2ML VIAL ONE (12:21)
[2019-03-10] MEDS ORDERED: fentaNYL citrate 100 MCG/2 ML VIAL ONE (12:21)
[2019-03-10] MEDS ORDERED: LIDOCAINE HCL 2% 2 ML VIAL/AMP(20MG/ML) INFIL ONE (12:21)
[2019-03-10] MEDS ORDERED: ONDANSETRON INJ 2 MG/ML 2 ML VIAL ONE (12:22)
[2019-03-10] MEDS ORDERED: PROPOFOL IV EMULSION 10 MG/ML 20 ML VIAL IV ONE (12:22)
[2019-03-10] MEDS ORDERED: PHENYLEPHRINE 100MCG/ML 5ML SYR IV PRN (12:44)
[2019-03-10] MEDS ORDERED: HYDROmorphone INJ 1 MG/ML SYRINGE IV PRN (12:44)
[2019-03-10] MEDS ORDERED: ONDANSETRON INJ 2 MG/ML 2 ML VIAL IV PRN ×2 (12:44→16:18)
[2019-03-10] MEDS ORDERED: KETOROLAC 30 MG/ML VIAL IV PRN (12:44)
[2019-03-10] MEDS ORDERED: ePHEDrine sulfate 50 MG/ML AMP IV PRN (12:44)
[2019-03-10] MEDS ORDERED: ATROPINE SULFATE 0.1 MG/ML 10ML SYR IV PRN (12:44)
[2019-03-10] MEDS ORDERED: SODIUM CHLORIDE 0.9% PF 50 ML VIAL ONE (13:14)
[2019-03-10] MEDS ORDERED: EPINEPHrine INJ 1 MG/ML AMP ONE (13:14)
[2019-03-10] MEDS ORDERED: BUPIVACAINE 0.25% 30 ML VIAL ONE (13:14)
[2019-03-10] MEDS ORDERED: BACITRACIN INJ 50,000 UNIT VIAL ONE (13:15)
[2019-03-10] MEDS ORDERED: BUPIVACAINE LIPOSOME 1.3% 266 MG/20 ML VIAL ONE (13:15)
[2019-03-10] MEDS ORDERED: TRANEXAMIC ACID 1,000 MG in 0.9 % SODIUM CHLORIDE 100 ML IV STA (13:35)
--- NOTE | 2019-03-10 15:06 | Post Operative Brief Note ---
Immediate Post Op Note v1 Date of Surgery March 10, 2019 Pre & Post Diagnosis Operation Date: 03/10/19 12:30 Pre-Op Diagnosis: Left Knee Advanced Degenerative Joint Disease Post-Op Diagnosis: Left Knee Advanced Degenerative Joint Disease Procedure Operation Date: 03/10/19 12:30 Actual Procedures p Left Total Knee Arthroplasty(Left) - Earl Oliveira MD Surgeon Earl Oliveira MD Transformer Assembler Konstantin, PAC Estimated Blood Loss 50 Findings Consistent with Post-Op Diagnosis Fluids 1400 cc Specimens Left Knee Drains Holcomb Catheter (A 16 Latvian holcomb catheter was inserted by CHERYL Wall, without difficulty, clear yellow urine obtained, output to be monitored by Anesthesia.) Anesthesia Type Spinal MAC Complications none Disposition Accompanied Patient To Recovery: No Disposition: Recovery Room
--- NOTE | 2019-03-10 15:34 | XRay Report ---
XR knee LT 2V routine HISTORY: 73 years-old Female Surgical Post Op left knee total joint arthroplasty. History of degener ative joint disease COMPARISON: Left knee radiographs 01/26/2019 TECHNIQUE: 2 views of the left knee FINDINGS: Left knee total joint arthroplasty and patella resurfacing demonstrates satisfactory alignment. No ac lynsey fracture or retained foreign body. Anterior midline skin chyna are noted along with expected po stsurgical soft tissue swelling and deep tissue air or surgical drainage catheter. IMPRESSION: Left knee total joint arthroplasty and patellar resurfacing with satisfactory alignment. The above report was generated using voice recognition software. It may contain grammatical, syntax o r spelling errors. Electronically signed by: Salvatore Uriarte M.D. 03/10/2019 3:33 PM
--- NOTE | 2019-03-10 15:55 | Anesthesiology Progress Note ---
Date of Service March 10, 2019 Anesthesia Post Procedure Vital Signs Vital Signs: Temp Pulse Pulse Resp BP Pulse Ox 03/10/19 15:48 36.7 C 47 L 16 167/78 H 93 03/10/19 15:40 52 L 18 180/81 H 95 03/10/19 15:30 49 L 15 184/80 H 96 03/10/19 15:20 44 L 13 181/77 H 96 03/10/19 15:13 36.2 C L 53 L 16 169/72 H 96 03/10/19 10:47 36.5 C 68 20 179/85 H 97 Transfer of Care Handoff Completed per policy Notes Mental Status: alert / awake / arousable and participated in evaluation Patient Amnestic to Procedure: Yes Nausea / Vomiting: adequately controlled Pain: adequately controlled Airway Patency, RR, SpO2: stable & adequate BP & HR: stable & adequate Hydration State: stable & adequate Neuraxial Anesthesia: was administered and sensory block is resolving Anesthetic Complications: no major complications apparent
[2019-03-10] MEDS ORDERED: ALBUTEROL HFA 8 GM INHALER INH PRN (16:18)
[2019-03-10] MEDS ORDERED: MAGNESIUM HYDROXIDE SUSP 30 ML UDC PO PRN (16:18)
[2019-03-10] MEDS ORDERED: METOCLOPRAMIDE HCL INJ 5 MG/ML 2 ML VIAL IV PRN (16:18)
[2019-03-10] MEDS ORDERED: BISACODYL 10 MG SUPP PR PRN (16:18)
[2019-03-10] MEDS ORDERED: NALOXONE HCL 0.4 MG/1 ML VIAL/CARP IV PRN (16:18)
[2019-03-10] MEDS ORDERED: FLUTICASONE PROPIONATE NA SPR 16 GM BTL NAE PRN (16:18)
[2019-03-10] MEDS ORDERED: SODIUM CHLORIDE 0.9% 1000ML 1,000 ML IV SCH (16:18)
[2019-03-10] MEDS ORDERED: ALUMINUM/MAGNESIUM SUSP 30 ML UDC PO PRN (16:18)
[2019-03-10] MEDS: TRAMADOL HCL 50 MG TABLET PO PRN (16:40)
[2019-03-10] MEDS: ASCORBIC ACID 500 MG TAB PO SCH (18:13)
[2019-03-10] MEDS: FERROUS GLUCONATE 324 MG TAB PO SCH (18:13)
[2019-03-10] MEDS: KETOROLAC TROMETHAMINE 15 MG/ML VIAL IV SCH ×2 (18:14→23:37)
[2019-03-10] MEDS: NICOTINE 7 MG/24 HR TDSY TD SCH (18:14)
[2019-03-10] MEDS ORDERED: TRANEXAMIC ACID 1,000 MG in 0.9 % SODIUM CHLORIDE 100 ML IV SCH (21:00)
[2019-03-10] MEDS: ASPIRIN 81 MG ECTAB PO SCH (21:02)
[2019-03-10] MEDS: CARVEDILOL 12.5 MG TAB PO SCH (21:02)
[2019-03-10] MEDS: DOCUSATE SODIUM 100 MG CAP PO SCH (21:02)
[2019-03-10] MEDS: ATORVASTATIN 40 MG TAB PO SCH (21:02)
[2019-03-10] MEDS: SENNA 8.6 MG TAB PO SCH (21:02)
[2019-03-10] MEDS: ACETAMINOPHEN 500 MG TAB PO SCH (21:03)
[2019-03-10] MEDS: CEFAZOLIN 1000MG 1,000 MG/7.5 ML SYR IV SCH (21:06)
[2019-03-10] MEDS ORDERED: HydrALAZINE HCL 20 MG/ML VIAL IV PRN (21:48)
[2019-03-10] MEDS: HYDROmorphone INJ 0.5 MG/0.5 ML SYR IV PRN (21:55)
--- NOTE | 2019-03-10 22:50 | Operative Report ---
DATE OF OPERATION: 03/10/2019 SURGEON: Earl Oliveira MD FUEL CELL BATTERY TECHNICIAN: CHERYL Russ PREOPERATIVE DIAGNOSIS: Left knee degenerative joint disease. POSTOPERATIVE DIAGNOSIS: Left knee degenerative joint disease. PROCEDURE PERFORMED: Left cemented posterior stabilized total knee arthroplasty. COMPLICATIONS: None. ESTIMATED BLOOD LOSS: 50 mL. FLUID REPLACEMENT: 1000 mL crystalloid fluid replacement. TOURNIQUET TIME: 52 minutes at 300 mmHg. ANESTHESIA: Spinal with adductor canal block. DRAINS: None. SPECIMENS: Left knee sent for pathology. OPERATIVE INDICATIONS: The patient is a 73-year-old female who has had a long history of knee problems. She underwent a right knee replacement 2 years ago and has done well from this. She continued to be bothered by left knee pain and discomfort. She has been through extensive conservative treatment. X-rays showed advanced medial compartment arthritis. She elected to proceed with surgical treatment. OPERATIVE FINDINGS: Operative findings were extensive grade 4 [id number] disease of the medial compartment. She had some focal grade 4 changes of the patellofemoral compartment. The lateral compartment was pretty well spared. She had a varus deformity to her knee with a moderate-sized knee effusion. OPERATIVE IMPLANTS: Operative implants consisted of: 1. A Biomet Vanguard size 62.5 left posterior stabilized femoral component. 2. A Biomet size 67 tibial tray. 3. A 10-mm posterior stabilized polyethylene insert. 4. A 28 x 8 all poly patella. OPERATIVE PROCEDURE: The patient was taken to the operating room, identified and placed on the operative table in supine position. All contact areas were appropriately padded. IV antibiotics were provided by anesthesia team. A spinal anesthetic and adductor canal block had been provided in the holding area. Ngo catheter was placed in sterile fashion. A left thigh tourniquet was then placed and the left lower extremity was then prepped and draped in usual sterile fashion. The left leg was elevated and exsanguinated with Esmarch and tourniquet was placed at 300 mmHg. An anterior approach to the left knee was then performed through a longitudinal incision centered over the patella. Sharp dissection was carried through the subcutaneous tissue down to the level of the extensor mechanism. A medial parapatellar arthrotomy incision was made. Some subperiosteal dissection was carried out medially. The fat pad was resected from beneath the patellar tendon. The lateral patellofemoral ligament was released. The patella was everted and the knee was flexed. The osteophytes were taken off the distal femur. The ACL and PCL were then released from the distal femur. The tibia subluxated anteriorly. The external tibial alignment jig was then placed in the anterior face of the tibia and adjusted to 14 mm medially. Proximal tibial cut was made to remove about a millimeter or two of bone from the most deficient aspect of the medial tibial side. Some osteophytes were taken off medially and posteromedially. The tibia was sized to a size 67. Attention was then drawn to the femur. The distal femur was entered with a sharp drill bit. The intramedullary canal was suctioned. A left 6-degree valgus cutting guide was placed. Distal femoral cutting block was pinned in place. Distal femoral cut was made to take an additional 3 mm of bone off the distal femur. Femur was then sized to a size 62.5. We downsized this slightly. The AP cutting block was pinned parallel to the epicondylar axis, which was 5 degrees of external rotation. The anterior cut, anterior chamfer, posterior cut, posterior chamfer cuts were made. Box cutting guide was placed and adjusted slightly lateral and the box cut was made. The knee was flexed. The remnants of the medial and lateral menisci were excised. The osteophytes were taken off the posterior aspect of the femur. A trial femoral component was placed. The tibial tray was pinned in maximum external rotation and the drill and stem punch were used to create a defect in proximal tibia for the tibial tray. The knee was then trialed and the 10 mm insert fit most appropriately. Attention was then drawn to the patella. The patella was cleaned of all soft tissues. Patella thickness measured 23 mm in thickness, it was cut down to 14. It was sized to a 28 patella. Lug holes were drilled for a 28 patella. The lateral osteophyte was removed. Patella button was placed. Knee was taken through range of motion, patella tracked nicely with no thumbs test. Attention was then drawn toward placement of the permanent components. All trial components were removed. Bone plug was placed in the distal femur to limit blood loss. A double batch of Palacos G cement was mixed. A Biomet Vanguard size 62.5 left posterior stabilized femoral component, a size 67 tibial tray, a 10 mm posterior stabilized polyethylene insert, and a 28 x 8 all poly patella were then cemented in place. Knee was brought out into full extension until the cement hardened. A final cement check was then performed. Pericapsular tissues were injected with a total of 100 mL of a combination of 20 mL of Exparel, 30 mL of normal saline, 50 mL of 0.25% Marcaine with epinephrine. The patient did receive 1 gram of tranexamic acid. The tourniquet was let down for a final tourniquet time of 52 minutes. Hemostasis was assured with the use of electrocautery. Extensor mechanism was then closed with a combination of #1 PDS suture and #1 Vicryl suture in a [id number] fashion. Extensor mechanism was checked and found to be intact. The subcutaneous tissue was then closed with 2-0 Dexon suture in buried interrupted fashion. Skin was closed with skin chyna. Leg was then cleaned, dried, and a sterile dressing of Xeroform, 4 x 4's, sterile cast padding, and Justus bandage were applied. The patient was then transferred to the recovery room in stable condition. The patient tolerated the procedure well with no complication. All needle and sponge counts were correct at the end of the operation. I attest to the content of the Intraoperative Record and any orders documented therein. Any exceptions are noted below. NIDIA
--- NOTE | 2019-03-11 02:06 | Consultation Report ---
DATE OF CONSULTATION: 03/10/2019 CHIEF COMPLAINT: Status post left knee arthroplasty, hypertension. HISTORY OF PRESENT ILLNESS: This is a 73-year-old female with past medical history significant for hyperlipidemia, prediabetes, COPD, mild intermittent asthma, hypertension, GERD, vitamin D deficiency, B12 deficiency, urge incontinence, osteoporosis, benign positional vertigo, anemia, tobacco use disorder, depression and anxiety, status post left total knee arthroplasty, tolerated the procedure okay. Pain is under control. The patient was on losartan and Coreg at home for blood pressure, but her heart rate is somewhat on the lower side,and could not give Coreg. Blood pressure running high so we are consulted for blood pressure management. The patient denies any chest pain, no shortness of breath, no cough. Had some headache and nausea earlier that resolved now. Had some cough earlier, this resolved. No blurred vision. No abdominal pain. Appetite is okay. Currently resting comfortable and hemodynamically stable, afebrile. ALLERGIES: HYDROCHLOROTHIAZIDE AND LISINOPRIL. PAST MEDICAL HISTORY: As mentioned above. PAST SURGICAL HISTORY: Colonoscopy, EGDs, repair of the mandible fracture, status post left total knee arthroplasty. MEDICATIONS AT HOME: The patient is on Fosamax 70 mg p.o. weekly, triamcinolone apply topical to affected area b.i.d., Coreg 12.5 mg p.o. b.i.d., omeprazole 40 mg p.o. daily, losartan 75 mg p.o. daily, Paxil 10 mg p.o. daily, Flexeril 10 mg p.o. at bedtime p.r.n., Flonase 2 sprays into nostril daily, atorvastatin 80 mg p.o. daily, aspirin enteric coated 81 mg p.o. daily, meclizine 25 mg p.o. t.i.d. p.r.n., albuterol 2 puffs inhalation q. 4 hours p.r.n., oxybutynin XL 10 mg p.o. daily, ferrous sulfate 325 mg p.o. daily with vitamin C, Caltrate plus D 1 tablet daily. FAMILY HISTORY: Significant for mother has dementia. Father has CVA. SOCIAL HISTORY: . Smokes on average half pack a day for 41 years. No alcohol use. No drug use. REVIEW OF SYMPTOMS: As per HPI. Rest of review of systems negative. PHYSICAL EXAMINATION: GENERAL: The patient is of moderate build, not in acute distress. VITAL SIGNS: Temperature 36.6, pulse 58, respiratory rate 16, blood pressure was 190/79, currently 158/75, oxygen 97% on 2 liters. HEENT: No pallor, no icterus. NECK: No neck masses. Supple. CARDIOVASCULAR: S1, S2 heard, regular rate and rhythm, no murmur, no gallop. RESPIRATORY SYSTEM: Normal AP diameter. No accessory muscle use. No wheezing, no crackles. ABDOMEN: Soft, bowel sounds present. Nontender. No distention. CENTRAL NERVOUS SYSTEM: Nonfocal. EXTREMITIES: Status post left total knee arthroplasty. Moves extremities. LABORATORIES: Unavailable. ASSESSMENT AND PLAN: This is a 73-year-old female status post left total knee arthroplasty. 1. Left total knee arthroplasty. Management as per orthopedics. PT, OT and disposition as per orthopedics. 2. Hypertension. The patient is on Coreg and losartan at home. Currently, heart rate is on the lower side. Continue home losartan. Coreg with hold parameters. IV hydralazine p.r.n. We will monitor the blood pressure. 3. Hyperlipidemia. Continue statin. 4. Gastroesophageal reflux disease. PPI. 5. Asthma, stable, albuterol p.r.n. 6. Deep venous thrombosis prophylaxis as per orthopedics. 7. Disposition as per orthopedics. MTDD
[2019-03-11] MEDS: ACETAMINOPHEN 500 MG TAB PO SCH ×3 (06:19→21:47)
[2019-03-11] MEDS: CEFAZOLIN 1000MG 1,000 MG/7.5 ML SYR IV SCH (06:20)
[2019-03-11] MEDS: KETOROLAC TROMETHAMINE 15 MG/ML VIAL IV SCH ×4 (06:20→23:49)
[2019-03-11 06:40] LABS: Hematocrit (blood only) 35.9 % (37-47); Hemoglobin 12.3 g/dL (12.0-16.0); Mean Corpuscular Hgb Conc 34.3 g/dL (32-36); Mean Corpuscular Volume 91.8 fL (80-100); Mean Platelet Volume 11.4 fL (7.4-10.4); Platelet Count 205 K/uL (130-400); RDW Coefficient of Variation 13.4 % (11.5-14.5); RDW Standard Deviation 44.6 fL (36.4-46.3); Red Blood Count 3.91 M/uL (4.2-5.4); White Blood Count 8.13 K/uL (4.8-10.8)
[2019-03-11 07:18] LABS: BUN Creatinine Ratio 16.2 (10-20); Calcium 8.5 mg/dl (8.5-10.1); Creatinine Clr Calc Pharmacy 40.1 ml/min; Est GFR (African American) 56.2; Est GFR (Non-African American) 48.5; Potassium 4.1 mmol/L (3.5-5.1)
[2019-03-11] MEDS: TRAMADOL HCL 50 MG TABLET PO PRN ×2 (07:25→17:01)
[2019-03-11] MEDS: ASPIRIN 81 MG ECTAB PO SCH ×2 (07:26→20:27)
[2019-03-11] MEDS: OXYBUTYNIN CHLORIDE XL 5 MG TABCR PO SCH (07:26)
[2019-03-11] MEDS: FERROUS SULFATE 325 MG TAB PO SCH (07:26)
[2019-03-11] MEDS: PANTOprazole 40 MG TAB PO SCH (07:27)
[2019-03-11] MEDS: FERROUS GLUCONATE 324 MG TAB PO SCH ×2 (07:27→17:00)
[2019-03-11] MEDS: ASCORBIC ACID 500 MG TAB PO SCH ×2 (07:27→17:00)
[2019-03-11] MEDS: DOCUSATE SODIUM 100 MG CAP PO SCH ×2 (07:27→20:27)
[2019-03-11] MEDS: MULTIVITAMIN TAB PO SCH (07:27)
[2019-03-11] MEDS: CARVEDILOL 12.5 MG TAB PO SCH ×2 (07:27→20:27)
[2019-03-11] MEDS: NICOTINE 7 MG/24 HR TDSY TD SCH (07:28)
[2019-03-11] MEDS: LOSARTAN POTASSIUM 25 MG TAB PO SCH (07:36)
[2019-03-11 07:48] LABS: Estimated Average Glucose 123 mg/dl; Hemoglobin A1C 5.9 % (4.5-5.6)
--- NOTE | 2019-03-11 08:47 | Anesthesiology Progress Note ---
Date of Service March 11, 2019 Anesthesia Post Procedure Vital Signs Vital Signs: Temp Pulse Pulse Pulse Resp BP BP 03/11/19 07:59 36.6 C 62 17 142/62 H 03/11/19 03:08 36.6 C 55 L 16 161/73 H 03/10/19 23:11 36.6 C 58 L 16 158/75 H 03/10/19 22:30 54 L 198/79 H 03/10/19 20:39 56 L 188/84 H 03/10/19 20:00 36.7 C 48 L 18 183/79 H 03/10/19 19:03 36.3 C L 48 L 16 181/76 H 183/77 H 03/10/19 18:31 201/77 H 03/10/19 17:19 36.3 C L 18 203/82 H 03/10/19 16:42 51 L 192/84 H 03/10/19 16:01 36.7 C 48 L 15 170/78 H 03/10/19 15:48 36.7 C 47 L 16 167/78 H 03/10/19 15:40 52 L 18 180/81 H 03/10/19 15:30 49 L 15 184/80 H 03/10/19 15:20 44 L 13 181/77 H 03/10/19 15:13 36.2 C L 53 L 16 169/72 H 03/10/19 10:47 36.5 C 68 20 179/85 H Pulse Ox 03/11/19 07:59 94 03/11/19 03:08 98 03/10/19 23:11 97 03/10/19 22:30 03/10/19 20:39 03/10/19 20:00 97 03/10/19 19:03 100 03/10/19 18:31 03/10/19 17:19 100 03/10/19 16:42 03/10/19 16:01 94 03/10/19 15:48 93 03/10/19 15:40 95 03/10/19 15:30 96 03/10/19 15:20 96 03/10/19 15:13 96 03/10/19 10:47 97 Pain Intensity Left Knee: Pain Intensity: 6 Notes Mental Status: alert / awake / arousable and participated in evaluation Patient Amnestic to Procedure: Yes Nausea / Vomiting: adequately controlled Pain: adequately controlled Airway Patency, RR, SpO2: stable & adequate BP & HR: stable & adequate Hydration State: stable & adequate Neuraxial Anesthesia: was administered and sensory block resolved Anesthetic Complications: no major complications apparent and Pt Satisfied with anesthetic care
[2019-03-11] MEDS ORDERED: LOSARTAN POTASSIUM 50 MG TAB PO SCH (09:00)
[2019-03-11] MEDS ORDERED: CALCIUM 600MG + VIT D 400 IU TAB PO SCH (09:00)
[2019-03-11] MEDS ORDERED: CHOLECALCIFEROL 1,000 UNITS TAB PO SCH (09:00)
--- NOTE | 2019-03-11 12:55 | Hospitalist Progress Note ---
Date of Service March 11, 2019 Assessment & Plan (1) Post-operative state: S/P LEFT KNEE ARTHROPLASTY -POD # 1 -Post operative pain is controlled on current medications -H & H stable -Wound care, DVT prophylaxis per primary team POST OPERATIVE VOMITING One episode today AM Associated with gas pain, feels better after vomiting. No more episodes, abd exam benign -Continue with PPI HTN Elevated in 150s -Continue with home medications- losartan, Coreg. IV hydralazine PRN ordered -Monitor HYPERLIPIDEMIA -Continue with statin GERD -Continue with PPI ASTHMA -Stable with no exacerbation DVT PROPHYLAXIS -Per ortho DISPOSITION Per primary team Subjective Patient had an episode of vomiting today morning. She had some gas-like pain in her abdomen and feels better after vomiting. Denies any fever, chills, abdominal pain, heartburn, chest pain, shortness of breath, cough. Postoperative pain is tolerable on current medications Physical Exam Physical Exam: GENERAL- AAOX3, No acute distress NECK- Supple, no JVD LUNGS- Air entry bilaterally equal. No rales, rhonchi, crackles, wheezes heard. HEART- Regular rate and rhythm. No murmurs ABDOMEN- Soft, non tender, non distended, Bowel sounds heard. EXTREMITIES- Status post left knee replacement Results & Data Vital Signs (Past 12 Hours) Vital Signs Temp Pulse Pulse Resp BP BP Pulse Ox 03/11/19 12:00 36.3 C L 51 L 18 152/64 H 93 03/11/19 07:59 36.6 C 62 17 142/62 H 94 03/11/19 03:08 36.6 C 55 L 16 161/73 H 98
--- NOTE | 2019-03-11 19:23 | Progress Note ---
DATE: 03/11/2019 SUBJECTIVE: A 73-year-old white female postop day 1 from left knee replacement. She is doing pretty well pain flanagan. She has been pretty nauseated a good bit on and off today. No chest pain or shortness of breath. Not feeling dizzy or lightheaded. OBJECTIVE: VITAL SIGNS: Temperature 37.0. Vital signs stable. She has been hypertensive. PHYSICAL EXAMINATION: GENERAL: Reveals a pleasant elderly female. She is lying in bed and I had to wake her this afternoon. EXTREMITIES: Examination of the left leg reveals the dressing to be clean, dry and intact. The patient can dorsiflex and plantarflex her foot appropriately. She is neurologically intact. LABORATORY DATA: Hemoglobin is 12.3. Hematocrit 35.9. Electrolytes are stable. ASSESSMENT: A 73-year-old white female postoperative day 1 from left knee replacement, doing pretty well. She has been hypertensive and she is running high blood pressures recently by her report. Medicine has been consulted. PLAN: 1. DVT prophylaxis including thigh-high TEDs, SCDs, and aspirin twice a day. 2. PT/OT. Weight bear as tolerated. Left total knee protocol. 3. Pain control, doing pretty well with current pain regimen. 4. Hypertension. Medicine service has been consulted to help us with this. 5. Disposition: Plan to discharge to home and she is going to do home health once adequately recovered.
[2019-03-11] MEDS: ATORVASTATIN 40 MG TAB PO SCH (20:27)
[2019-03-11] MEDS: HYDROmorphone INJ 0.5 MG/0.5 ML SYR IV PRN (20:28)
[2019-03-11] MEDS: SENNA 8.6 MG TAB PO SCH (20:28)
[2019-03-12 05:37] LABS: Hematocrit (blood only) 31.4 % (37-47); Hemoglobin 10.8 g/dL (12.0-16.0); Mean Corpuscular Hgb Conc 34.4 g/dL (32-36); Mean Corpuscular Volume 90.2 fL (80-100); Mean Platelet Volume 11.6 fL (7.4-10.4); Platelet Count 177 K/uL (130-400); RDW Standard Deviation 42.8 fL (36.4-46.3); Red Blood Count 3.48 M/uL (4.2-5.4); White Blood Count 9.27 K/uL (4.8-10.8)
[2019-03-12] MEDS: ACETAMINOPHEN 500 MG TAB PO SCH (05:44)
[2019-03-12] MEDS: KETOROLAC TROMETHAMINE 15 MG/ML VIAL IV SCH ×2 (05:45→11:17)
[2019-03-12 06:10] LABS: BUN Creatinine Ratio 18.4 (10-20); Calcium 8.4 mg/dl (8.5-10.1); Creatinine Clr Calc Pharmacy 46.2 ml/min; Est GFR (African American) 66.8; Est GFR (Non-African American) 57.6
[2019-03-12] MEDS: MULTIVITAMIN TAB PO SCH (07:26)
[2019-03-12] MEDS: CARVEDILOL 12.5 MG TAB PO SCH (07:26)
[2019-03-12] MEDS: OXYBUTYNIN CHLORIDE XL 5 MG TABCR PO SCH (07:26)
[2019-03-12] MEDS: PANTOprazole 40 MG TAB PO SCH (07:26)
[2019-03-12] MEDS: FERROUS GLUCONATE 324 MG TAB PO SCH (07:27)
[2019-03-12] MEDS: FERROUS SULFATE 325 MG TAB PO SCH (07:27)
[2019-03-12] MEDS: ASPIRIN 81 MG ECTAB PO SCH (07:27)
[2019-03-12] MEDS: DOCUSATE SODIUM 100 MG CAP PO SCH (07:27)
[2019-03-12] MEDS: LOSARTAN POTASSIUM 25 MG TAB PO SCH (07:27)
[2019-03-12] MEDS: ASCORBIC ACID 500 MG TAB PO SCH (07:28)
[2019-03-12] MEDS: NICOTINE 7 MG/24 HR TDSY TD SCH (07:28)
[2019-03-12] MEDS: TRAMADOL HCL 50 MG TABLET PO PRN (07:31)
--- NOTE | 2019-03-12 11:39 | Hospitalist Progress Note ---
Date of Service March 12, 2019 Assessment & Plan (1) Post-operative state: S/P LEFT KNEE ARTHROPLASTY -POD # 2 -Post operative pain is controlled on current medications -H & H -dropped by 2 gram- post operative status -Wound care, DVT prophylaxis per primary team ACUTE BLOOD LOSS ANEMIA With Hb drop by 2 gram. No indication for transfusion Monitor H & H trend POST OPERATIVE VOMITING - Resolved One episode on 03/11/2019. Associated with gas pain, feels better after vomiting. No more episodes, abd exam benign -Continue with PPI HTN Elevated in 150s -Continue with home medications- losartan, Coreg. IV hydralazine PRN ordered -Monitor HYPERLIPIDEMIA -Continue with statin GERD -Continue with PPI ASTHMA -Stable with no exacerbation DVT PROPHYLAXIS -Per ortho DISPOSITION Per primary team Subjective Patient is doing well. No more episodes of gas pain or vomiting. Denies any fever, chills, abdominal pain, heartburn, chest pain, shortness of breath, cough. Postoperative pain is tolerable on current medications Physical Exam Physical Exam: GENERAL- AAOX3, No acute distress NECK- Supple, no JVD LUNGS- Air entry bilaterally equal. No rales, rhonchi, crackles, wheezes heard. HEART- Regular rate and rhythm. No murmurs ABDOMEN- Soft, non tender, non distended, Bowel sounds heard. EXTREMITIES- Status post left knee replacement Results & Data Vital Signs (Past 12 Hours) Vital Signs Temp Pulse Pulse Resp BP Pulse Ox 03/12/19 07:33 64 03/12/19 06:30 36.9 C 58 L 16 156/78 H 90
--- NOTE | 2019-03-12 12:23 | Progress Note ---
DATE: 03/12/2019 SUBJECTIVE: A 73-year-old white female postop day 2 from a left knee replacement. She is doing much better today. Nausea is improved. Pain is controlled. No chest pain or shortness of breath. Not feeling dizzy or lightheaded. OBJECTIVE: VITAL SIGNS: Temperature 36.9. Vital signs are stable. PHYSICAL EXAMINATION: GENERAL: Reveals a pleasant, middle-aged female. She is sitting up in bed and looks pretty comfortable. She is talking on the phone to her ride. EXTREMITIES: Examination of the left leg reveals the leg to be well aligned. Dressing is clean, dry and intact. She can dorsiflex and plantarflex her foot appropriately. She is neurologically intact. ASSESSMENT: A 73-year-old white female postoperative day 2 from a left knee replacement, doing pretty well. Pain is controlled. Nausea is improved. PLAN: 1. DVT prophylaxis including thigh-high TEDs, SCDs, and aspirin twice a day. 2. PT/OT. Weight bear as tolerated. Left total knee protocol. 3. Pain control, doing well with current pain regimen. 4. Disposition: Plan to discharge to home with some home help later today.
[2019-03-14] MEDS ORDERED: ALENDRONATE SODIUM 70 MG TAB PO SCH (06:00)
--- NOTE | 2019-03-18 16:41 | Discharge Summary ---
ADMITTING PHYSICIAN AND SURGEON: Dr. Earl Oliveira. ADMITTING DIAGNOSIS: Left knee degenerative joint disease. SURGERY PERFORMED: Left total knee arthroplasty. SECONDARY DIAGNOSES: Hypertension, elevated cholesterol, arthritis, peptic ulcer disease. CONSULTS: Dr. Pearl for postoperative hypertension. HISTORY AND PHYSICAL EXAMINATION: Well documented in the patient's chart. HOSPITAL COURSE: The patient was admitted on 03/10/2019 underwent total knee arthroplasty, tolerated the procedure well. There were no complications. She was transferred to the PACU postoperatively and later to the orthopedic floor for further care. She was given Ancef for antibiotic prophylaxis, CHRISSIE stockings, SCDs and aspirin for DVT prophylaxis. Hemoglobin, hematocrit and vital signs were monitored during her hospital stay and remained stable. She did not require any blood transfusions. She did have hypertension postoperatively and the hospitalist service was consulted for further management. By postoperative day 2, she was tolerating a regular diet, pain was controlled with oral pain medicine. She was participating in physical therapy. On postop day 2, she was discharged home, set up with home health services. She was given printed discharge instructions including new prescriptions for extra strength Tylenol, aspirin and tramadol. Continue her home medications, continue physical therapy, weightbearing as tolerated, CHRISSIE stockings. Follow up approximately 2 weeks postop or sooner if there are any problems or concerns.
== END 2019-03-12 13:11 | disposition home health service (06) | DRG 470 ==
LOC: ASU 10:12 → 3E 15:10